=== PATIENT | female | born 1990 | race Caucasian/White ===

== ENCOUNTER → 2016-09-07 | Outpatient (CLI) | payer OTHER | LOC: MOB LAB 16:12 | PROVIDERS: ATTEND Obstetrics & Gynecology | DX: Z36 Encounter for antenatal screening of mother (principal); Z3A.36 36 weeks gestation of pregnancy | CPT/HCPCS: 87150 ==

== ENCOUNTER 2016-10-02 01:57 | Inpatient (IN) | payer OTHER ==
[2016-10-02] MEDS: Lactated Ringers-OB Dept 1,000 ML PRIMARY IV SCH ×3 (01:57→11:23)
[2016-10-02] MEDS ORDERED: Oxytocin 20 Units + LR 1,000 ML IV ONE (01:59)
[2016-10-02] MEDS ORDERED: CALCIUM CARBONATE 500 MG (TUMS) CHEWABLE TABLET PO PRN ×2 (02:06→14:52)
[2016-10-02] MEDS ORDERED: CefOXitin Inj 2 GM in Sodium Chloride 0.9% 100 ML IV PRN (02:06)
[2016-10-02] MEDS ORDERED: Lidocaine 1% 10 MG/ML - 20 ML VIAL SUBCUT PRN (02:06)
[2016-10-02] MEDS ORDERED: BUTORPHANOL TARTRATE 2 MG/1 ML VIAL IVP PRN (02:06)
[2016-10-02] MEDS ORDERED: ePHEDrine Inj 5 MG in Normal Saline Flush 1 ML IVP PRN (02:06)
[2016-10-02] MEDS ORDERED: NORMAL SALINE 10 ML SYRINGE FLUSH IVP PRN ×2 (02:06→14:52)
[2016-10-02] MEDS ORDERED: ONDANSETRON 4 MG/2 ML VIAL IVP PRN ×2 (02:06→14:52)
[2016-10-02] MEDS ORDERED: Metoclopramide Inj 10 MG/2 ML VIAL IV PRN (02:06)
[2016-10-02] MEDS ORDERED: Famotidine Inj 20 MG in Normal Saline Flush 10 ML IVP PRN ×4 (02:06)
[2016-10-02] MEDS ORDERED: METHYLERGONOVINE MALEATE 0.2 MG/1 ML VIAL IM PRN ×2 (02:06→14:52)
[2016-10-02] MEDS ORDERED: CITRIC ACID/SODIUM CITRATE 30 ML CUP PO PRN (02:06)
[2016-10-02] MEDS ORDERED: NALOXONE 0.4 MG/1 ML VIAL IVP PRN (02:06)
[2016-10-02] MEDS ORDERED: fentaNYL Inj 100 MCG/2 ML VIAL IV PRN (02:06)
[2016-10-02] MEDS ORDERED: Naloxone Inj 0.01 MG in Normal Saline Flush 1 ML IVP PRN (02:06)
[2016-10-02] MEDS ORDERED: Carboprost Inj 250 MCG/ML AMP IM PRN ×2 (02:06→14:52)
[2016-10-02] MEDS ORDERED: Phenylephrine Inj 50 MCG in Normal Saline Flush 0.5 ML IVP PRN (02:06)
[2016-10-02] MEDS ORDERED: Nalbuphine Inj 20 MG/ML Ampule IVP PRN ×2 (02:06→14:52)
[2016-10-02] MEDS ORDERED: diphenhydrAMINE 50 MG/1 ML VIAL IVP PRN ×2 (02:06→14:52)
[2016-10-02] MEDS ORDERED: LIDOCAINE W/ SODIUM BICARB 0.5 ML SYR SUBD PRN (02:06)
[2016-10-02] MEDS ORDERED: OXYTOCIN 10 UNIT/1 ML IM PRN (02:06)
[2016-10-02] MEDS ORDERED: TERBUTALINE SULFATE 1 MG/1 ML SDV SUBCUT PRN (02:06)
[2016-10-02] MEDS ORDERED: MISOPROSTOL 200 MCG TABLET RECTAL PRN (02:06)
[2016-10-02 02:15] LABS: HEMATOCRIT 36.7 % (37.0-47.0); HEMOGLOBIN 11.5 g/dL (12.0-16.0); MEAN CORPUSCULAR HEMOGLOBIN 26.1 PG (27-31); MEAN CORPUSCULAR HGB CONC 31.3 g/dL (33-37); MEAN PLATELET VOLUME 10.7 FL (7.4-12.2); RDW COEFFICIENT OF VARIATION 14.9 % (11.5-14.5); RED BLOOD COUNT 4.4 10^6/uL (4.20-5.40); WHITE BLOOD COUNT 13.55 10^3/uL (4.8-10.8)
[2016-10-02] MEDS ORDERED: Oxytocin 20 Units + LR 1,000 ML IV SCH ×3 (02:15→14:52)
[2016-10-02] MEDS ORDERED: Fent/Bupiv 2mcg/0.0625% Epid 250 ML ONE (02:54)
--- NOTE | 2016-10-02 03:11 | CRNA.PROCE ---
Central Neuraxis Block Placemt - - Safety Measures: Time Out Taken, Site Verified - - Type of Block: Epidural Reason for Block: Analgesia Moniters Used During Block: SPO2, NIBP Sedation Used - Enter Amount Used in Comment Field: Fentanyl (mcg): Yes (50mcg) Skin Prep Used: Betadine Draped: Yes Skin Infiltration - Enter Amount Used in Comment Field: 1% Xylocaine (mL): Yes ( wheal) Spinal Needle Used: 18 Hustead 80 mm Local Anesthetic - Enter Amount Used in Comment Field: 5.0 % Xylocaine with Dextrose (ml): Yes (4ml Test Dose) Number of Centimeters Catheter Threaded: 3.0 Bioclusive Dressing Applied: Yes
[2016-10-02] MEDS ORDERED: fentaNYL 2 MCG/BUPIVACAINE 0.0625%/NS 0.9% 250 ML BAG EPIDURAL SCH (03:15)
[2016-10-02 03:25] LABS: CANNABINOID SCREEN,URINE NEGATIVE (NEG); COCAINE SCREEN NEGATIVE (NEG); METHAMPHETAMINES SCREEN,URINE NEGATIVE (NEG); TRICYCLIC ANTIDEPRESSANT,URINE NEGATIVE (NEG); URINE SAMPLE TYPE VOIDED SPECIMEN; URINE SPECIFIC GRAVITY - MAN 1.014
[2016-10-02] MEDS ORDERED: NICOTINE 7 MG /DAY PATCH TRANSDERM ONE (07:14)
--- NOTE | 2016-10-02 12:48 | OB.DEL.SUM ---
Delivery Note Delivery Summary: Selam presented in early labor early this morning. She was dilated to only 2 cm, but the cervix was very thin with a very posterior os. Epidural was placed and she progressed to 3 cm dilation. Pitocin was started and she progressed well through active labor to complete dilation. Ammiotomy was performed then with return of clear fluid. The patient labored down a bit, then pushed for a short time to of a viable male , Apgars 9/9, wt. 7# 8oz, from OA position over a tiny MLE without extension and bilateral labial lacerations. The placenta delivered almost immediately, spontaneously, intact, with a 3 vessel cord. Repair was made with 3-0 Vicryl Rapide suture. EBL 200 ml. There were no complications. Mother and baby tolerated delivery well.
[2016-10-02] MEDS ORDERED: DIPH,PERTUSS,TET(ADACEL) VAC/PF 0.5 ML (Tdap) IM SCH (14:52)
[2016-10-02] MEDS ORDERED: diphenhydrAMINE 25 MG CAPSULE PO PRN (14:52)
[2016-10-02] MEDS ORDERED: BENZOCAINE/MENTHOL SPRAY 56 GM BOTTLE TOPICAL PRN (14:52)
[2016-10-02] MEDS ORDERED: OXYTOCIN 10 UNIT/1 ML IM ONE (14:52)
[2016-10-02] MEDS ORDERED: Ondansetron ODT Tab 4 MG TAB PO PRN (14:52)
[2016-10-02] MEDS ORDERED: ACETAMINOPHEN 325 MG TABLET PO PRN (14:52)
[2016-10-02] MEDS ORDERED: Methylergonovine Tab 0.2 MG TAB PO PRN (14:52)
[2016-10-02] MEDS ORDERED: MISOPROSTOL 200 MCG TABLET RECTAL ONE (14:52)
[2016-10-02] MEDS ORDERED: GLYCERIN/WITCH HAZEL 1 BOX TOPICAL PRN (14:52)
[2016-10-02] MEDS ORDERED: LANOLIN HPA 40 GM TUBE TOPICAL PRN (14:52)
[2016-10-02] MEDS: IBUPROFEN 800 MG TABLET PO PRN ×2 (15:55→23:54)
[2016-10-02] MEDS: HYDROcodone-APAP 5 MG -325 MG TABLET PO PRN ×2 (17:55→21:18)
[2016-10-02] MEDS: DOCUSATE 100 MG CAPSULE PO SCH (21:19)
[2016-10-03] MEDS: HYDROcodone-APAP 5 MG -325 MG TABLET PO PRN (02:53)
[2016-10-03 05:30] LABS: HEMATOCRIT 32.3 % (37.0-47.0); MEAN CORPUSCULAR HEMOGLOBIN 26.1 PG (27-31); MEAN PLATELET VOLUME 10.9 FL (7.4-12.2); RED BLOOD COUNT 3.83 10^6/uL (4.20-5.40); WHITE BLOOD COUNT 16.97 10^3/uL (4.8-10.8)
[2016-10-03] MEDS ORDERED: Patch Removal NICOTINE PATCH TRANSDERM ONE (08:00)
[2016-10-03] MEDS: DOCUSATE 100 MG CAPSULE PO SCH (08:02)
[2016-10-03] MEDS: IBUPROFEN 800 MG TABLET PO PRN ×2 (08:03→16:26)
[2016-10-03 08:30] VITALS: RESP 16
[2016-10-03] MEDS ORDERED: Prenatal Multivitamin Tab 1 TAB TAB PO SCH (09:00)
--- NOTE | 2016-10-03 10:23 | CRNA.PROGR ---
Anesthesia Note Anesthesia Progress Note: Sitting up in bed visiting with family. Epidural dc'd intact previously by OB Rn, see note. Discussed anesthetic course and she has not questions or concerns regarding her anesthetic care for NOHEMI. Vital Signs (Last 8 hours) Temp Pulse Resp BP Pulse Ox 10/03/16 08:29 98.0 F 96 16 136/88 98 10/03/16 04:01 98.1 F 92 18 133/74 97 Laboratory Results 10/02/16 10/02/16 10/03/16 Range/Units 02:06 03:16 05:05 WBC 13.55 H 16.97 H (4.8-10.8) 10^3/uL RBC 4.40 3.83 L (4.20-5.40) 10^6/uL Hgb 11.5 L 10.0 L (12.0-16.0) g/dL Hct 36.7 L 32.3 L (37.0-47.0) % MCV 83.4 84.3 (81-99) FL MCH 26.1 L 26.1 L (27-31) PG MCHC 31.3 L 31.0 L (33-37) g/dL RDW Std Deviation 44.5 45.2 (39-50) fL RDW Coeff of Gabriel 14.9 H 15.0 H (11.5-14.5) % Plt Count 391 H 299 (140-350) 10*3/uL MPV 10.7 10.9 (7.4-12.2) FL Ur Collection Type Voided specimen U Specif Grav (Refrac) 1.014 Urine Opiates Screen Negative (NEG) Ur Buprenorphine Negative (NEG) Ur Oxycodone Screen Negative (NEG) Urine Methadone Screen Negative (NEG) Ur Propoxyphene Screen Negative (NEG) Ur Barbiturates Screen Negative (NEG) U Tricyclic Antidepress Negative (NEG) Phencyclidine Screen Negative (NEG) Amphetamines Screen Negative (NEG) U Methamphetamines Scrn Negative (NEG) U Benzodiazepines Scrn Negative (NEG) Urine Cocaine Screen Negative (NEG) U Cannabinoids Screen Negative (NEG)
--- NOTE | 2016-10-03 13:25 | DCSUMMARY ---
Hospitalization Summary Admit Date: 09/25/16 Discharge Date: 10/03/16 Primary Diagnosis:: Term , Delivered Delivery Type: Vaginal Hospital Course: Normal, uncomplicated labor, delivery, and course. / Postop Complications: None Complications: None. Exam - Vitals Vital Signs: Vital Signs Temperature 98.0 F Temperature Source Oral Pulse Rate [Pulse Oximeter] 96 Pulse Rate 102 Respiratory Rate [contraction] 18 Respiratory Rate 16 Blood Pressure [Right Arm] 136/88 Blood Pressure 117/63 Pulse Ox 98 Oxygen Delivery Method Room Air Height 5 ft 7 in Weight 143 lb
[2016-10-03 14:26] VITALS: TEMP 97.9
[2016-10-03] MEDS ORDERED: GLYCERIN/WITCH HAZEL 1 BOX TOPICAL ONE (15:54)
[2016-10-03] MEDS ORDERED: BENZOCAINE/MENTHOL SPRAY 56 GM BOTTLE TOPICAL ONE (15:54)
[2016-10-03] MEDS ORDERED: HYDROcodone-APAP 5 MG -325 MG TABLET PO ONE (15:55)
[2016-10-03] MEDS ORDERED: IBUPROFEN 800 MG TABLET PO ONE (16:05)
== END 2016-10-03 15:18 | disposition home or self-care (01) | DRG 775 ==
LOC: OBIP 01:57
PROVIDERS: ADMIT Obstetrics & Gynecology; ATTEND Obstetrics & Gynecology
PROC: 10E0XZZ Delivery of Products of Conception, External Approach (ICD-10-PCS; principal; 2016-10-02)
PROC: 0UQMXZZ Repair Vulva, External Approach (ICD-10-PCS; 2016-10-02)
PROC: 0W8NXZZ Division of Female Perineum, External Approach (ICD-10-PCS; 2016-10-02)
DX: O70.0 First degree perineal laceration during delivery (principal); Z3A.40 40 weeks gestation of pregnancy; Z37.0 Single live birth
CPT/HCPCS: 36415; 80305; 81003; 85027; J1200; J2210; J3010; J3490; J7120